=== PATIENT | female | born 1985 | race Caucasian/White ===

== ENCOUNTER 2020-05-29 12:11 | Inpatient (IN) | payer MEDICAID ==
[~2020-05-29] VITALS: Ht 177.8 cm; Wt 123.4 kg
[2020-06-14 09:34] LABS: HEMATOCRIT 33.7 % (36.0-48.0); HEMOGLOBIN 11.4 g/dL (12-16); MCH 30.4 pg (26.0-34.0); MCHC 33.8 g/dL (31.0-37.0); MCV 89.9 fL (80.0-100.0); MEAN PLATELET VOLUME 9.7 fL (7.4-10.4); RBC 3.75 10x6/uL (4.00-5.40); RDW 13.7 % (11.5-14.5); WBC 9.9 10x3/uL (4.8-10.8)
[2020-06-14 09:51] VITALS: BP 111/76; Ht 177.8 cm; Wt 123.4 kg
[2020-06-14 11:02] LABS: BILIRUBIN NEGATIVE (NEGATIVE); KETONE NEGATIVE (NEGATIVE); NITRITE NEGATIVE (NEGATIVE); UROBILINOGEN NORMAL mg/dL (< 2)
[2020-06-14 11:03] LABS: WHITE CELLS - URINE 0-5 HPF (0-4)
[2020-06-14 11:04] LABS: BACTERIA FEW HPF (NONE SEEN); SQUAMOUS EPITHELIAL 0-5 HPF (0-4); UDS - AMPHET NEGATIVE QUAL (NEGATIVE); UDS - BARB NEGATIVE QUAL (NEGATIVE); UDS - BENZO NEGATIVE QUAL (NEGATIVE); UDS - COCAINE NEGATIVE QUAL (NEGATIVE); UDS - OPIATE NEGATIVE QUAL (NEGATIVE); UDS - PCP NEGATIVE QUAL (NEGATIVE); UDS - THC NEGATIVE QUAL (NEGATIVE)
--- NOTE | 2020-06-14 14:58 | NUR ---
REPORT RECIEVED FROM RERE GÓMEZ RN AT 1428 ON 06/14/20. DURING PACU PHASE 2ND BAG OF PITOCIN WAS STARTED BY RN. RN NOTED THAT PATIENT HAD MULTIPLE BLOOD PRESSURES THAT WERE LESS THAN 90 SYSTOLIC. SHE ASSESSED BLOOD PRESSURE CUFF PLACEMENT,OPENED FLUIDS AND ADMINISTERED 10MG IV AT 1416 WITHOUT SYSTOLIC RECOVERY. SHE THEN ADMINISTERED 30 MG IM IN RIGHT DELTOID BY RERE GÓMEZ RN. PT BP STABLIZED. RERE STATES THAT SHE ALSO ADMINISTERED TORODOL PER ORDER AT 1355. AT THIS TIME PT HAS 125 ML OF PITOCIN RUNNING IN RIGHT HAND PIV. SCANT BLEEDING NOTED ON PAD. ODILON CARE ADMINISTERED AND GREGORY CATHETER OUTPUT ASSESSED. 450 ML OF YELLOW URINE IN GREGORY BAG. PATIENT AAOX4. PT DENIES PAIN AND STATES THAT PAIN IS AT A 0/10 ON NUMERIC SCALE. RN WILL CONTINUE TO MONITOR PT AT THIS TIME. BLOOD PRESSURE MONITORING TO BE CONTINUED
--- NOTE | 2020-06-14 19:00 | NUR ---
REPORT RECEIVED FROM MADONNA HIDALGO
[2020-06-14 19:30] VITALS: BP 122/72
--- NOTE | 2020-06-14 20:00 | NUR ---
ASSESSMENT COMPLETED. PA IS A C SECTION FROM THIS AFTERNOON. SHE HAS AN IV IN HER RIGHT HAND WITH A 20G. SHE HAS PITOCIN HANGING. SHE HAS A LOW TRANSVERSE INCISION WITH STERISTRIPS. GREGORY CATHETER IN PLACE. NO C/O NOW. FUNDUS IS FIRM. SHE IS HOLDING HAD BREAST FEEDING HER BABY.
--- NOTE | 2020-06-14 21:00 | NUR ---
PT ASKED IF SHE WAS NEEDING HER IV PAIN MEDS. SHE SAID SHE REALLY DID NOT. I ASKED HER TO LET ME KNOW WHEN SHE FELT LIKE SHE NEEDED IT. SHE HAS HAD TORADOL TONIGHT. SHE IS STILL HOLDING THE BABY.
--- NOTE | 2020-06-14 23:12 | NUR ---
PT REQUESTED PAIN MED. SHE RECEIVED 1 MG DILAUDID IV. SHE WAS TOLD TO CALL IF SHE NEEDED ANYTHING ELSE.
--- NOTE | 2020-06-15 | NUR ---
PT IS RESTING QUIETLY. NO C/O
[2020-06-15 01:00] VITALS: BP 106/68
[2020-06-15 05:15] VITALS: BP 110/73
--- NOTE | 2020-06-15 06:00 | NUR ---
PT PADS CHANGED. FUNDUS FIRM PT HOLDING BABY. NO NEW C/O OR NEEDS
[2020-06-15 06:11] LABS: RAPID PLASMA REAGIN Non Reactive (Non Reactive)
[2020-06-15 10:13] LABS: BASOPHILS 0.1 % (0-2); EOSINOPHILS 0.4 % (0-7); HEMATOCRIT 28.5 % (36.0-48.0); HEMOGLOBIN 9.7 g/dL (12-16); LYMPHOCYTE ABS# 0.81 10x3/uL (1.18-3.74); MCH 30.5 pg (26.0-34.0); MCV 89.6 fL (80.0-100.0); MEAN PLATELET VOLUME 8.9 fL (7.4-10.4); NEUTROPHIL ABS# 8.44 10x3/uL (1.56-6.13); NEUTROPHILS 83.5 % (40-80); PLATELET COUNT 252 10x3/uL (130-400); RBC 3.18 10x6/uL (4.00-5.40); RDW 13.8 % (11.5-14.5); WBC 10.1 10x3/uL (4.8-10.8)
[2020-06-15 11:19] VITALS: BP 112/59
[2020-06-15 12:42] VITALS: BP 129/80
--- NOTE | 2020-06-15 14:53 | NUR ---
06/15/20 1400 Pt verbizes improvement of pain. Friend at bedside holding infant. 600 clear yellow urine emptied at this time from [facility]. Completing post op voids. No further needs or concerns voiced.
[2020-06-15 17:43] VITALS: BP 120/70
--- NOTE | 2020-06-15 19:00 | NUR ---
REPORT GIVEN BY MADONNA WEBB
[2020-06-15 20:00] VITALS: BP 102/57
--- NOTE | 2020-06-15 20:30 | NUR ---
ASSESSMENT COMPLETED. PT HAS NO C/0 AT THIS TIME. SHE IS HOLDING THE BABY AND WALKING AROUND THE ROOM. INCISION IS DRY AND INTACT. BLEEDING SMALL. FUNDUS FIRM. SHE HAS A SALINE LOCK IN HER RIGHT HAND.
--- NOTE | 2020-06-15 20:43 | NUR ---
MEDICATIONS GIVEN. PT HAS NO C/O AT THIS TIME. SHE WAS GIVEN A PAIN PILL AND I ASKED HER TO PLEASE ASK FOR THIS WHEN SHE HURTS. SHE ALSO WAS GIVEN A STOOL SOFTNER. SHE STATES SHE HAS TROUBLE WITH CONSTIPATION.
--- NOTE | 2020-06-15 22:03 | NUR ---
PT IS RESTING IN BED WITHOUT C/O. SHE STATES HER PAIN IS MUCH BETTER SINCE HER PAIN MEDS. SHE ASKED FOR A GLASS OF WATER AND THIS WAS DELIVERED.
[2020-06-16 00:30] VITALS: BP 92/53
--- NOTE | 2020-06-16 02:00 | NUR ---
PT IS FEEDING BABY AT THIS TIME. SHE HAS NO C/O. I ASKED HER TO CALL ME WHEN SHE WAS FINISHED FEEDING SO THE BABY CAN GO TO THE NURSERY.
--- NOTE | 2020-06-16 04:00 | NUR ---
PT IS SLEEPING SOUNDLY. DID NOT WAKE FOR VS THEY HAVE BEEN CONSISTENTLY STABLE.
--- NOTE | 2020-06-16 07:39 | NUR ---
RESTING QUIETLY WITH EYES CLOSED, LAYING ON R SIDE. RESP REGULAR AND UNLABORED, NO S/S OF DISTRESS NOTED. RESTING QUIETLY IN OPEN CRIB AT BEDSIDE. BED IN LOW POSITION WITH SRUP X2. CALL LIGHT AND PHONE WITHIN REACH. PT NOT DISTURBED TO ALLOW FOR REST.
--- NOTE | 2020-06-16 08:13 | NUR ---
CARING FOR INFANT. DENIES NEEDS. BED IN LOW POSITION WITH SRUP X2. CALL LIGHT AND PHONE WITHING REACH. WILL CONTINUE TO MONITOR.
--- NOTE | 2020-06-16 09:10 | NUR ---
SHIFT ASSESSMENT COMPLETED PER FLOWSHEET. VSS. FF, MIDLINE AND U2 WITH SMALL AMT RUBRA LOCHIA, NO CLOTS NOTED. REPORTS THAT SHE IS VOIDING AND PASSING FLATUS WITHOUT DIFFICULTY. PIV D/C'D WITH TIP INTACT. LOWER TRANSVERSE ABD INCISION WELL APPROXIMATED WITH GLUE INTACT, NO DRAINAGE OR S/S OF INFECTION NOTED. POC DISCUSSED, VERBALIZES UNDERSTANDING AND DENIES QUESTIONS. MEDICATED PER EMAR FOR DISCOMFORT. BED IN LOW POSITION WITH SRUP X2. CALL LIGHT AND PHONE WITHIN REACH.
[2020-06-16 09:15] VITALS: BP 125/77
--- NOTE | 2020-06-16 09:46 | NUR ---
AMBULATORY IN [place], STEADY GAIT NOTED. DENIES PAIN AND NEEDS.
--- NOTE | 2020-06-16 11:01 | NUR ---
CONVERSING ON PHONE AND BONDING WITH INFANT SKIN TO SKIN. DENIES NEEDS AT THIS TIME. BED IN LOW POSITION WITH SRUP X2. CALL LIGHT AND PHONE WITHIN REACH. WILL CONTINUE TO MONITOR.
--- NOTE | 2020-06-16 12:35 | NUR ---
NBN AT BEDSIDE DISCUSSING NB POC. PT DENIES PAIN AND NEEDS.
[2020-06-16] MEDS ORDERED: PERCOCET 5-3251 TAB PO (12:57)
[2020-06-16] MEDS ORDERED: IBUPROFEN800 MG PO (12:57)
--- NOTE | 2020-06-16 13:42 | NUR ---
VERBAL AND WRITTEN D/C INSTRUCTIONS PROVIDED. PT PROVIDED WITH COPIES OF [employer] YOUR [employer], POST OP INSTRUCTIONS, AND PFW PP CARE INST HANDOUTS PROVIDED. VERBALIZES UNDERSTANDING AND DENIES QUESTIONS. MEDICATED PER EMAR PER PT REQUEST FOR ABD AND INCISIONAL DISCOMFORT. ICE WATER PROVIDED. INFANT IN NBN AT THIS TIME.
--- NOTE | 2020-06-16 14:31 | NUR ---
OFF UNIT VIA W/C WITH THIS RN AND INFANT. DENIES PAIN.
--- NOTE | 2020-06-16 22:34 | OP ---
PATIENT NAME: CESAR MONROY MEDICAL RECORD: [id number] :87 LOCATION:[id number] ADMISSION DATE:06/14/20 SURGEON: NGHIA ESPINOZA DO DATE OF OPERATION: 06/14/2020 DATE OF SERVICE: 06/14/2020 PREOPERATIVE DIAGNOSIS: Previous , 39 weeks. POSTOPERATIVE DIAGNOSIS: Previous , 39 weeks. PRIMARY SURGEON: Nghia Espinoza DO ANESTHESIA: Spinal. PROCEDURE: Repeat low transverse via Pfannenstiel incision. FINDINGS: Male born at 12:22, weight 3654 grams/8 pounds, Apgars 9 and 9, vertex position, clear amniotic fluid. SPECIMENS: Placenta and cord blood. ESTIMATED BLOOD LOSS: 800 mL. IV FLUIDS: Per anesthesia. URINE OUTPUT: 300 mL clear yellow urine. INFECTION PROPHYLAXIS: 3 grams Ancef. COMPLICATIONS: None. Prior to procedure, risks of surgery and repeat were reviewed including bleeding, pain, infection, damage to surrounding structures such as the bowel, bladder, neurovascular structures and ureters as well as formation of scar tissue and adhesive disease as well as increased risk of VTE. The patient expressed understanding and did not desire tubal at this time. Consents were signed in the office and preoperatively. Prior to surgery, pediatric team notified of patient having prior child with h/o congenital heart defect and h/o multiple surgeries and that pt had not been able to get ECHO in this to assess for CHD. DESCRIPTION OF PROCEDURE: The patient was taken to the operating room where spinal anesthesia was administered and found to be adequate. She was prepped and draped in normal sterile fashion and placed in supine position with leftward tilt. A Pfannenstiel skin incision was made with a scalpel and carried down to the underlying layer of fascia with the Bovie. The fascia was incised in the midline and the incision extended laterally. The inferior aspect of the fascia was grasped with Luis Felipe clamps and rectus muscle was dissected off sharply. Superior aspect of the fascia was grasped with Luis Felipe clamps and rectus muscle dissected off sharply. Rectus muscle with some scar tissue and adherence, so grasped in the midline with Allises and carefully with a scalpel until the peritoneum was noted. Peritoneum noted to be free of adherent bowel and bladder and entered bluntly. The peritoneum was then with gentle OPERATIVE REPORT [id number] CESAR MONROY. Bladder flap created using metzenbaums. Bladder blade placed. A transverse incision was made with scalpel and then extended using upward and downward gentle traction. Clear amniotic fluid. The baby's head brought to incision, head and shoulders delivered without difficulty and rest of body followed. Mouth and nose were suctioned. Cord was clamped and cut after being milked times 3 and handed to waiting pediatric nurse. Placenta delivered manually and uterus was exteriorized. A dry laparotomy sponge used to assure complete removal of placental membranes. Hysterotomy closed with 0 Vicryl in a running-locked fashion with good hemostasis. A small area on the left lateral side of hysterotomy with some bleeding, [id number] stitch resulted with good hemostasis. Posterior cul-de-sac irrigated with saline and suctioned with mcfarland suction to remove blood clots and fluid. Hysterotomy again examined and hemostatic. Uterus replaced into the abdominal wall cavity. Gutters cleaned with moist laparotomy sponge to assure complete removal of blood clots and fluid. Slight bleeding noted at serosal edge by bladder flap, cautery used gently with appropriate hemostasis. Yocasta also placed on incision at at edge. Muscle layer irrigated and bleeding vessels cauterized, some yocasta at superior portion. Muscle reapproximated with 2-0 Monocryl in a running fashion. Fascia was closed in a running fashion with 0 Vicryl. Subcutaneous layer irrigated and any bleeding vessels cauterized for good hemostasis. Then, subcutaneous layer were reapproximated in a running fashion with 0 plain gut and skin closed in a subcuticular fashion with 3-0 Monocryl and Dermabond. The patient tolerated the procedure well. All lap, instrument and needle counts were correct times 2. The patient was taken to recovery room in stable condition. TRANSINT:[id number] Voice Confirmation ID: [id number] DOCUMENT ID: [id number] NGHIA ESPINOZA DO at 2230 CC: [id number] DICTATION DATE: 06/14/20 1508 DIE STAMPER: 06/14/20 1713 DIS IN 06/16/20 [facility] [address] [place] [address]
== END 2020-06-16 14:31 | disposition home or self-care (01) | DRG 788 ==
LOC: D.LD 06-14 08:22 → D.SDCHOLD 06-14 09:00 → D.LD 06-16 14:31
PROVIDERS: ADMIT Obstetrics & Gynecology; ATTEND Obstetrics & Gynecology
PROC: 10D00Z1 Extraction of Products of Conception, Low, Open Approach (ICD-10-PCS; principal; 2020-06-14 10:30)
DX: O99.824 Streptococcus B carrier state complicating childbirth (principal); Z3A.39 39 weeks gestation of pregnancy; Z37.0 Single live birth; O34.219 Maternal care for unspecified type scar from previous cesarean delivery; O99.214 Obesity complicating childbirth; E66.9 Obesity, unspecified